=== PATIENT | female | born 1970 | race Caucasian/White ===

== ENCOUNTER → 2020-03-29 | Outpatient (CLI) | payer MEDICAID ==
--- NOTE | 2020-03-29 16:30 | Diagnostic Imaging Report ---
PROCEDURE: MRI lumbar spine. TECHNIQUE: Multiplanar, multisequence MRI of the lumbar spine was performed without contrast. INDICATION:Chronic lower back pain. COMPARISON: None FINDINGS: For the purposes of this exam, last well-formed disc space is noted to be L5-S1 level. Static alignment is maintained. There is no significant anteroretrolisthesis. There is no evidence of jumped facets. Vertebral body heights are maintained. There is no evidence of acute fracture. Marrow signal is normal throughout. Intervertebral disc heights are well-maintained. Visualized portions of distal cord are unremarkable. Conus terminates at approximately the L1 level. No abnormal intrathecal filling defects are seen. Pre-and paravertebral soft tissue structures are unremarkable. Axial images show no large disc bulge or focal protrusions. There is no significant spinal canal or neuroforaminal stenosis throughout. IMPRESSION: 1. Unremarkable MRI of the lumbar spine. Dictated by: Dictated on workstation # [id number]
== END ==
LOC: RAD 13:26
PROVIDERS: ATTEND Internal Medicine
DX: M54.16 Radiculopathy, lumbar region (principal)
CPT/HCPCS: 72148

== ENCOUNTER 2020-04-06 14:12 | Emergency (ER) | payer MEDICAID ==
[~2020-04-06] VITALS: Ht 172 cm; Wt 102.9 kg
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
[2020-04-06] MEDS ORDERED: PANT40TA52 (14:34)
[2020-04-06] MEDS ORDERED: METH750T3 (14:34)
[2020-04-06] MEDS ORDERED: CLON2TAB12 (14:34)
[2020-04-06] MEDS ORDERED: PRAV20TA3 (14:34)
[2020-04-06] MEDS ORDERED: QUET100T33 (14:34)
[2020-04-06] MEDS ORDERED: DULO60CA59 (14:34)
[2020-04-06] MEDS ORDERED: TRAZ-227 (14:34)
[2020-04-06] MEDS ORDERED: TOPI100T11 (14:34)
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
[2020-04-06 15:42] VITALS: BP 132/70
== END 2020-04-06 15:42 | disposition home or self-care (01) ==
LOC: EDUNIT# 14:12 → ER 14:13
DX: S06.0X0A Concussion without loss of consciousness, initial encounter (principal); S01.01XA Laceration without foreign body of scalp, initial encounter; R40.2410 Glasgow coma scale score 13-15, unspecified time; F17.210 Nicotine dependence, cigarettes, uncomplicated; Z88.0 Allergy status to penicillin; Z91.040 Latex allergy status; V89.2XXA Person injured in unspecified motor-vehicle accident, traffic, initial encounter
CPT/HCPCS: 70450; 72125

== ENCOUNTER 2020-04-17 14:53 | Emergency (ER) | payer OTHER, MEDICAID ==
[~2020-04-17] VITALS: Ht 172.7 cm; Wt 102.9 kg
[~2020-04-17 14:53] MED LIST: CLON2TAB12; DULO60CA59; METH750T3; PANT40TA52; PRAV20TA3; QUET100T33; TOPI100T11; TRAZ-227
[2020-04-17 14:57] VITALS: BP 141/77
== END 2020-04-17 15:02 | disposition home or self-care (01) ==
LOC: EDUNIT# 14:53 → ER 14:54
DX: S01.91XD Laceration without foreign body of unspecified part of head, subsequent encounter (principal); X58.XXXD Exposure to other specified factors, subsequent encounter

== ENCOUNTER → 2020-06-27 | Outpatient (CLI) | payer MEDICAID ==
[~2020-06-27] MED LIST changes: +METH-732; -METH750T3
== END ==
LOC: RAD 14:00
PROVIDERS: ATTEND Nurse Practitioner
DX: Z12.31 Encounter for screening mammogram for malignant neoplasm of breast (principal)
CPT/HCPCS: 77063; 77067

== ENCOUNTER 2020-07-27 13:30 | Emergency (ER) | payer MEDICAID ==
[~2020-07-27] VITALS: Ht 170.1 cm; Wt 102.2 kg
[2020-07-27] MEDS ORDERED: NS IV 1000 ML 1,000 ML IV SCH (13:45)
[2020-07-27] MEDS ORDERED: ONDANSETRON 4 MG/2 ML (SDV) Z0FRAN IVP ONE (13:45)
[2020-07-27] MEDS ORDERED: KETOROLAC 30 MG/ML VIAL IVP ONE (13:45)
--- NOTE | 2020-07-27 13:45 | ED Abdominal Pain ---
General Stated Complaint: N/V ABD PAIN Source of Information: Patient, EMS Exam Limitations: No Limitations History of Present Illness Date Seen by Provider: Jul 27, 2020 Time Seen by Provider: 13:38 Initial Comments To ER with nausea vomiting and epigastric abdominal cramping that began this morning. She has irritable bowel syndrome and typically has to take Dulcolax 4 tablets daily to have a bowel movement daily. She has been out for about a week and subsequently has not had a bowel movement in a week. Today she took 3 Dulcolax and subsequently developed nausea vomiting and epigastric discomfort. Timing/Duration: 1-2 Days Severity/Quality: Moderate Radiation: No Radiation Activities at Onset: None Associated Symptoms: Nausea/Vomiting Allergies and Home Medications Allergies Coded Allergies: alprazolam (Verified Allergy, Unknown, 04/06/20) amitriptyline (Verified Allergy, Unknown, 04/06/20) latex (Verified Allergy, Unknown, 04/06/20) Patient Home Medication List Home Medication List Reviewed: Yes Review of Systems Review of Systems Constitutional: see HPI EENTM: No Symptoms Reported Respiratory: No Symptoms Reported Cardiovascular: No Symptoms Reported Gastrointestinal: See HPI, Abdominal Pain, Constipated, Nausea, Vomiting Genitourinary: No Symptoms Reported Musculoskeletal: no symptoms reported Skin: no symptoms reported Psychiatric/Neurological: No Symptoms Reported Endocrine: No Symptoms Reported Hematologic/Lymphatic: No Symptoms Reported Past Wagyoyr-Aqewfd-Vrzhxp Hx Patient Social History Type Used: Cigarettes Recent Hopitalizations: No Immunizations Up To Date Tetanus Booster (TDap): Less than 5yrs Seasonal Allergies Seasonal Allergies: No Past Medical History Surgeries: Yes (cervical spine fusion, l hip fx repair, colon ) Gallbladder, Hysterectomy, Tubal Ligation Respiratory: No Cardiac: Yes High Cholesterol Neurological: Yes Neuropathy Genitourinary: Yes (incontinence) Gastrointestinal: Yes (hiatal hernia, lactose intolerance) Irritable Bowel Musculoskeletal: Yes Degenerate Disk Disease, Arthritis, Fibromyalgia, Chronic Back Pain Endocrine: No HEENT: No Cancer: No Psychosocial: Yes Anxiety, Depression Integumentary: No Blood Disorders: No Adverse Reaction/Blood Tranf: No (n/a) Physical Exam Vital Signs Vital Signs - First Documented 07/27/20 13:30 Temp 36.2 Pulse 80 Resp 24 B/P (MAP) 122/82 (95) Pulse Ox 98 Capillary Refill : Height/Weight/BMI Height: '" Weight: lbs. oz. kg; 34.00 BMI Method: General Appearance: WD/WN, no apparent distress, obese HEENT: PERRL/EOMI, normal ENT inspection Respiratory: normal breath sounds, no respiratory distress, no accessory muscle use Gastrointestinal: normal bowel sounds, non tender (Nontender even to deep palpation.), soft Extremities: normal range of motion, non-tender Neurologic/Psychiatric: alert, normal mood/affect, oriented x 3 Skin: normal color, warm/dry Progress/Results/Core Measures Results/Orders Lab Results Laboratory Tests Test 07/27/20 13:52 07/27/20 14:47 Range/Units White Blood Count 10.6 4.3-11.0 10^3/uL Red Blood Count 4.36 3.80-5.11 10^6/uL Hemoglobin 11.3 L 11.5-16.0 g/dL Hematocrit 38 35-52 % Mean Corpuscular Volume 86 80-99 fL Mean Corpuscular Hemoglobin 26 25-34 pg Mean Corpuscular Hemoglobin Concent 30 L 32-36 g/dL Red Cell Distribution Width 17.0 H 10.0-14.5 % Platelet Count 341 130-400 10^3/uL Mean Platelet Volume 9.8 9.0-12.2 fL Immature Granulocyte % (Auto) 0 % Neutrophils (%) (Auto) 68 42-75 % Lymphocytes (%) (Auto) 17 12-44 % Monocytes (%) (Auto) 6 0-12 % Eosinophils (%) (Auto) 8 0-10 % Basophils (%) (Auto) 0 0-10 % Neutrophils # (Auto) 7.2 1.8-7.8 10^3/uL Lymphocytes # (Auto) 1.8 1.0-4.0 10^3/uL Monocytes # (Auto) 0.6 0.0-1.0 10^3/uL Eosinophils # (Auto) 0.9 H 0.0-0.3 10^3/uL Basophils # (Auto) 0.0 0.0-0.1 10^3/uL Immature Granulocyte # (Auto) 0.0 0.0-0.1 10^3/uL Sodium Level 143 135-145 MMOL/L Potassium Level 3.8 3.6-5.0 MMOL/L Chloride Level 110 H 98-107 MMOL/L Carbon Dioxide Level 22 21-32 MMOL/L Anion Gap 11 5-14 MMOL/L Blood Urea Nitrogen 19 H 7-18 MG/DL Creatinine 0.95 0.60-1.30 MG/DL Estimat Glomerular Filtration Rate > 60 BUN/Creatinine Ratio 20 Glucose Level 97 70-105 MG/DL Calcium Level 8.7 8.5-10.1 MG/DL Corrected Calcium 8.9 8.5-10.1 MG/DL Total Bilirubin 0.2 0.1-1.0 MG/DL Aspartate Amino Transf (AST/SGOT) 19 5-34 U/L Alanine Aminotransferase (ALT/SGPT) 26 0-55 U/L Alkaline Phosphatase 121 40-136 U/L Total Protein 6.5 6.4-8.2 GM/DL Albumin 3.7 3.2-4.5 GM/DL Lipase 38 8-78 U/L Urine Color YELLOW Urine Clarity CLEAR Urine pH 6.0 5-9 Urine Specific [place] 1.025 H 1.016-1.022 Urine Protein NEGATIVE NEGATIVE Urine Glucose (UA) NEGATIVE NEGATIVE Urine Ketones NEGATIVE NEGATIVE Urine Nitrite NEGATIVE NEGATIVE Urine Bilirubin NEGATIVE NEGATIVE Urine Urobilinogen 0.2 < = 1.0 MG/DL Urine Leukocyte Esterase NEGATIVE NEGATIVE Urine RBC (Auto) NEGATIVE NEGATIVE Urine RBC NONE /HPF Urine WBC RARE /HPF Urine Squamous Epithelial Cells 2-5 /HPF Urine Crystals NONE /LPF Urine Bacteria NEGATIVE /HPF Urine Casts NONE /LPF Urine Mucus NEGATIVE /LPF Urine Culture Indicated NO My Orders Orders - LUIS AVINA APRN Lipase (07/27/20 13:38) Ua Culture If Indicated (07/27/20 13:38) Cbc With Automated Diff (07/27/20 13:38) Comprehensive Metabolic Panel (07/27/20 13:38) Ed Iv/Invasive Line Start (07/27/20 13:38) Ns Iv 1000 Ml (Sodium Chloride 0.9%) (07/27/20 13:45) Ondansetron Injection (Zofran Injectio (07/27/20 13:45) Ketorolac Injection (Toradol Injection) (07/27/20 13:45) Acute Abd Series (07/27/20 13:40) Magnesium Citrate Oral Soln (Citrate Of (07/27/20 15:30) Medications Given in ED Current Medications Medications Dose Ordered Sig/Alexis Route Start Time Stop Time Status Last Admin Dose Admin Ketorolac Tromethamine 15 mg ONCE ONCE IVP 07/27/20 13:45 07/27/20 13:46 DC 07/27/20 14:31 15 MG Magnesium Citrate 300 ml ONCE ONCE PO 07/27/20 15:30 07/27/20 15:31 07/27/20 15:25 300 ML Ondansetron HCl 8 mg ONCE ONCE IVP 07/27/20 13:45 07/27/20 13:46 DC 07/27/20 14:31 8 MG Vital Signs/I&O 07/27/20 13:30 Temp 36.2 Pulse 80 Resp 24 B/P (MAP) 122/82 (95) Pulse Ox 98 Departure Impression Primary Impression: Abdominal cramping Additional Impression: Constipation Disposition: 01 HOME, SELF-CARE Condition: Stable Departure-Patient Inst. Decision time for Depature: 15:13 Referrals: SEE MELÉNDEZ MD (PCP/Family) Primary Care Physician Patient Instructions: Constipation in Adults LUIS AVINA [employer] Jul 27, 2020 13:45
[2020-07-27 14:01] LABS: BASOPHILS % (AUTO) 0 % (0-10); EOSINOPHILS # (AUTO) 0.9 10^3/uL (0.0-0.3); EOSINOPHILS % (AUTO) 8 % (0-10); HEMATOCRIT 38 % (35-52); HEMOGLOBIN 11.3 g/dL (11.5-16.0); LYMPHOCYTES # (AUTO) 1.8 10^3/uL (1.0-4.0); LYMPHOCYTES % (AUTO) 17 % (12-44); MEAN CORPUSCULAR HEMOGLOBIN 26 pg (25-34); MEAN CORPUSCULAR HGB CONC 30 g/dL (32-36); MEAN CORPUSCULAR VOLUME 86 fL (80-99); MEAN PLATELET VOLUME 9.8 fL (9.0-12.2); MONOCYTES # (AUTO) 0.6 10^3/uL (0.0-1.0); MONOCYTES % (AUTO) 6 % (0-12); NEUTROPHILS # (AUTO) 7.2 10^3/uL (1.8-7.8); NEUTROPHILS % (AUTO) 68 % (42-75); PLATELET COUNT 341 10^3/uL (130-400); WHITE BLOOD COUNT 10.6 10^3/uL (4.3-11.0)
--- NOTE | 2020-07-27 14:30 | Diagnostic Imaging Report ---
INDICATION: Constipation with nausea and vomiting. TIME OF EXAM: 02:18 p.m. FINDINGS: Heart size is normal. Lungs are clear. No free air is identified. There are surgical clips in the gallbladder fossa. Bowel gas pattern appears nonobstructed. No significant stool load is identified. No pathologic calcifications are seen. Postoperative changes in left hip are noted. IMPRESSION: No acute abnormality is detected. Dictated by: Dictated on workstation # [id number]
[2020-07-27 14:51] LABS: ALBUMIN 3.7 GM/DL (3.2-4.5); CHLORIDE 110 MMOL/L (98-107); POTASSIUM 3.8 MMOL/L (3.6-5.0); SODIUM 143 MMOL/L (135-145)
[2020-07-27 14:53] LABS: CALCIUM 8.7 MG/DL (8.5-10.1)
[2020-07-27 14:54] LABS: GLUCOSE 97 MG/DL (70-105); TOTAL PROTEIN 6.5 GM/DL (6.4-8.2)
[2020-07-27 14:55] LABS: CARBON DIOXIDE 22 MMOL/L (21-32)
[2020-07-27 14:56] LABS: BILIRUBIN,TOTAL 0.2 MG/DL (0.1-1.0)
[2020-07-27 14:57] LABS: ALKALINE PHOSPHATASE 121 U/L (40-136); CREATININE SERUM 0.95 MG/DL (0.60-1.30); GFR ESTIMATED > 60
[2020-07-27 14:58] LABS: BUN/CREATININE RATIO 20
[2020-07-27 14:58] LABS: BILIRUBIN,URINE NEGATIVE (NEGATIVE); CLARITY,URINE CLEAR; COLOR,URINE YELLOW; GLUCOSE, URINE (UA) NEGATIVE (NEGATIVE); KETONES,URINE NEGATIVE (NEGATIVE); LEUKOCYTE ESTERASE ,URINE NEGATIVE (NEGATIVE); NITRITE,URINE NEGATIVE (NEGATIVE); PROTEIN,URINE NEGATIVE (NEGATIVE)
[2020-07-27 15:00] LABS: ALANINE AMINOTRANSFERASE 26 U/L (0-55)
[2020-07-27 15:01] LABS: LIPASE 38 U/L (8-78)
[2020-07-27 15:07] LABS: BACTERIA,URINE NEGATIVE /HPF; WBC,URINE RARE /HPF
[2020-07-27 15:30] VITALS: BP 117/70
[2020-07-27] MEDS ORDERED: MAGNESIUM CITRATE 300 ML BTL PO ONE (15:30)
== END 2020-07-27 15:30 | disposition home or self-care (01) ==
LOC: EDUNIT# 13:30 → ER 13:31
DX: K59.00 Constipation, unspecified (principal); K58.9 Irritable bowel syndrome, unspecified; Z88.8 Allergy status to other drugs, medicaments and biological substances; Z91.040 Latex allergy status; Z79.899 Other long term (current) drug therapy
CPT/HCPCS: 36415; 74022; 80053; 81000; 83690; 85025

== ENCOUNTER → 2021-02-20 | Outpatient (CLI) | payer MEDICAID ==
--- NOTE | 2021-02-20 15:44 | Diagnostic Imaging Report ---
INDICATION: Lumbar radiculopathy, pain. EXAMINATION: Lumbar spine MRI without contrast on 02/20/2021. COMPARISON: 03/29/2020. FINDINGS: There is normal height and alignment of the vertebral bodies. The tip of the conus is unremarkable in appearance and location. L1-L2: There is bilateral facet and ligamentum flavum hypertrophy. There is no central or neuroforaminal stenosis. L2-L3: There is bilateral facet and ligamentum flavum hypertrophy. There is no central stenosis. There is mild bilateral neuroforaminal narrowing. L3-L4: There is bilateral facet and ligamentum flavum hypertrophy. There is a left paracentral lateral bulging disc. There is no central stenosis. There is moderate bilateral neuroforaminal stenosis, left greater than right. L4-L5: There is bilateral facet and ligamentum flavum hypertrophy with a mild broad-based bulging disc flattening the ventral thecal sac. No central narrowing. There is moderate to severe bilateral neuroforaminal narrowing. L5-S1: There is disc desiccation with a focal central disc protrusion. There is bilateral facet and ligamentum flavum hypertrophy. The central canal is patent. There is moderate bilateral neuroforaminal stenosis. The visualized intra-abdominal structures are unremarkable for an acute abnormality. IMPRESSION: Multilevel degenerative findings as discussed above. Dictated by: Dictated on workstation # [id number]
== END ==
LOC: RAD 12:58
PROVIDERS: ATTEND Internal Medicine
DX: M47.26 Other spondylosis with radiculopathy, lumbar region (principal); M51.16 Intervertebral disc disorders with radiculopathy, lumbar region; M51.17 Intervertebral disc disorders with radiculopathy, lumbosacral region; M48.061 Spinal stenosis, lumbar region without neurogenic claudication; M48.07 Spinal stenosis, lumbosacral region; M24.28 Disorder of ligament, vertebrae
CPT/HCPCS: 72148